=== PATIENT | female | born 1965 | race Caucasian/White ===

== ENCOUNTER 2023-12-01 11:44 | Emergency (ER) | payer BC, SELFPAY ==
[2023-12-01 11:57] VITALS: BP 181/118
[2023-12-01 12:24] VITALS: BMI 27.2
--- NOTE | 2023-12-01 12:24 | ED.GENMED ---
History of Present Illness
General
Chief Complaint: Musculo-Skeletal Complaint
Source: patient
Time Seen by Provider: 12/01/23 12:09
Travel History
Have you had any contact with someone who has COVID-19?: No
Do you have any symptoms of coronavirus? Fever > 100 degrees, chills, cough, shortness of breath, sore throat, loss of taste or smell, muscle aches, or headache?: No
History of Present Illness
History of Present Illness:
58-year-old female presenting emergency department for evaluation of right shoulder pain and decreased range of motion after she excellently tripped over her own feet yesterday evening landing on her right shoulder. She states since the fall she
has had pain and difficulty with range of motion and when pain did not subside this morning decided come to the ER for further evaluation. No other injuries were sustained. She denies any previous history of injury to the affected area.
Past History
Past History
ED Past Medical History: Hypercholesterolemia
ED Past Surgical History:
Social History
Tobacco: Non-smoker
Alcohol: Occasional
Drug: None
Personal:
Living: with family
Employment: Employed
Review of Systems
Review of Systems
All Other Systems: ROS reviewed and negative except as documented in HPI and ROS
Phy Exam
Physical Exam
Physical Exam:
GENERAL: Alert , in no apparent distress
EYE: conjunctiva clear
Head: Normocephalic atraumatic
NECK: Supple,
ENT: mmm.
LUNGS: no acute respiratory distress
NEUROLOGICAL: Alert and oriented
SKIN: Warm and dry, skin intact.
MUSCULOSKELETAL: Right upper extremity: Extremity is held adducted against her body. There is no obvious deformity, erythema, edema, ecchymosis, abrasion or laceration. Range of motion of the right shoulder is limited secondary to pain. Patient
does allow for active and passive range of motion of the elbow wrist digits without difficulty. Easily palpable radial pulse. Cap refill less than 2 seconds and sensation is grossly intact to light touch.
PSYCH: Normal and appropriate interaction.
Scores
Heart Failure Risk
Heart Failure Risk Score: Not Applicable
Heart Score for Chest Pain Patients
STEMI patient?: Not applicable
Withdrawal Assessment of Alcohol
Withdrawal Assessment Completed?: Not applicable
Course
Orders/Labs/Results
Orders:
Orders
12/01/23 12:00
Shoulder, Right 2 Views [CR Shoulder - Right Min 2 View] Urgent
Comment:
Reason For Exam: pain
12/01/23 12:34
Sling Right-Treatment ONCE
Vital Signs
Initial and Last Documented VS:
Initial Vital Signs
Temp Pulse Resp BP Pulse Ox
98.3 F 89 18 181/118 97
12/01/23 11:57 12/01/23 11:57 12/01/23 11:57 12/01/23 11:57 12/01/23 11:57
Last Documented Vital Signs
Temp Pulse Resp BP Pulse Ox
97.6 F 78 20 131/72 99
12/01/23 12:41 12/01/23 12:41 12/01/23 12:41 12/01/23 12:41 12/01/23 12:41
MDM/Problems Addressed
Differential Diagnosis Includes:
Fracture, dislocation, sprain, rotator cuff injury, ligamentous injury
MDM/Problems Addressed:
58-year-old female presenting emergency department for evaluation of right shoulder injury sustained an accidental fall last night. Range of motion very limited secondary to pain. X-ray had been ordered from triage and unfortunately shows a small
fracture of the proximal humerus but without any dislocation. Will place patient in a sling for comfort. Information for orthopedics will be provided. Advised continued NSAIDs/Tylenol for pain. Prescription for Percocet provided for breakthrough
pain. Patient declines anything for pain within the emergency department. She is otherwise stable for discharge.
*Radiology
Radiology exam reviewed: preliminary read by ED provider (Proximal right humerus fracture)
*Pulse Oximetry
Patient hypoxic: no
*Critical Care Note
Total Time (30-74mins, 75-104mins- exclusive of procedures): Not Applicable
ED Attending Note
-
Portions of this chart may have been created with voice recognition software.� Occasional wrong word or��sound alike� substitutions may have occurred due to the inherent limitations of voice recognition software.
Discharge Plan
Departure
Patient Disposition: Home (Routine Discharge)
Date of Disposition: 12/01/23
Time of Disposition: 12:24
Patient with high blood pressure during this ER visit?: Yes
Discharge Problem:
Closed fracture of proximal end of right humerus
Instructions: Upper Arm Fracture ED
Prescriptions:
New
oxycodone-acetaminophen [Percocet] 5-325 mg Tablet
1 tab PO Q6HPRN PRN (Reason: pain) Qty: 8 0RF
Referrals:
Rafiq Lofton MD [Active] - (Ortho- Call for appointment)
Interventions
Interventions:
*Risk Screen - Suicide Last Done: 12/01/23 11:57
*General Assessment Last Done: 12/01/23 11:57
*Neglect/Abuse Screening Last Done: 12/01/23 11:57
ED- Fall Risk Assessment Last Done: 12/01/23 12:24
*ED COVID-19 Vaccine History Last Done: 12/01/23 11:57
*Nursing Disposition Last Done: 12/01/23 12:41
ED-Musculoskeletal Assessment Last Done: 12/01/23 12:24
Discharge Date and Time
Discharge Date/Time: 12/01/23 12:43
[2023-12-01 12:41] VITALS: BP 131/72
== END 2023-12-01 12:43 | disposition home or self-care (01) ==
LOC: EMR 11:44
PROVIDERS: EMERGENCY PHYSICIAN Emergency Medicine; FAMILY PHYSICIAN Internal Medicine
DX: S42.201A Unspecified fracture of upper end of right humerus, initial encounter for closed fracture (principal); W01.0XXA Fall on same level from slipping, tripping and stumbling without subsequent striking against object, initial encounter; R03.0 Elevated blood-pressure reading, without diagnosis of hypertension; E78.00 Pure hypercholesterolemia, unspecified
CPT/HCPCS: 99283; 29240; 73030

== ENCOUNTER → 2024-12-25 08:58 | Outpatient (REF) | payer BC, SELFPAY | LOC: RAD 08:58 | PROVIDERS: ATTENDING PHYSICIAN Physician Assistant; FAMILY PHYSICIAN Internal Medicine | DX: Z13.820 Encounter for screening for osteoporosis (principal) | CPT/HCPCS: 77080 ==